=== PATIENT | female | born 1965 | race Caucasian/White ===

== ENCOUNTER → 2016-08-18 | Outpatient (CLI) | payer OTHER | LOC: RAD 09:20 | DX: J18.9 Pneumonia, unspecified organism (principal); M54.5 Low back pain; M47.897 Other spondylosis, lumbosacral region | CPT/HCPCS: 71020; 72110 ==

== ENCOUNTER → 2016-08-29 | Outpatient (CLI) | payer OTHER | LOC: KOH-I 13:58 | DX: R94.4 Abnormal results of kidney function studies (principal) | CPT/HCPCS: 76775 ==